=== PATIENT | female | born 1940 | race Caucasian/White ===

== ENCOUNTER 2017-03-26 11:44 | Inpatient (IN) | payer MEDICARE, OTHER ==
[~2017-03-26] VITALS: Ht 157.5 cm; Wt 86.4 kg
[2017-03-26] VITALS (12 sets, daily range): BP systolic 154–210; BP diastolic 66–96; PULSE 67–79; RESP 16–20; O2SAT 96–98
--- NOTE | 2017-03-26 12:11 | ED.REPORT ---
HPI-Stroke / CVA Mar 26, 2017 ED Provider: Tai Ta MD Patient is a 76 year old female with a history of diabetes and hypertension who presents to the ED due to left arm weakness for the past three days. Associated symptoms include a slight facial droop according to the patient's . She states that she has had some "weird" vision changes but "nothing major". Patient denies trouble talking, fever, cough, vomiting or diarrhea. The patient reports that she was playing cards three days ago and then she was suddenly unable to hold the cards. Per the patient's , the patient also bent over to pick up attendant some clothes and fell, which he thinks was because of her weakness. Nursing Notes Stated Complaint: STROKE SYMPTOMS Chief Complaint: Stroke Symptoms Nursing Notes Reviewed: Yes Allergies: Coded Allergies: No Known Allergies (Unverified , 03/26/17) Scheduled Amlodipine (Amlodipine) 5 Mg Tablet 5 MG PO DAILY (Reported) Levothyroxine (Levothyroxine) 175 Mcg Tablet 175 MCG PO DAILY (Reported) Losartan/HCTZ 100-25 mg (Hyzaar 100-25 mg) 1 Each Tablet 1 TABLET PO DAILY ( Reported) Metformin (Glucophage) 1,000 Mg Tablet 1,000 MG PO BID (Reported) Scheduled PRN Nitroglycerin SL (Nitrostat) 0.4 Mg Tab.subl 0.4 MG SL Q5MIN PRN PRN For Chest Pain (Reported) General Time Seen by Provider: 12:13 Chief Complaint Weakness Arm left Hx Obtained From: Patient, Spouse Arrived By: Walk-in Time last known well three days ago Sudden in Onset?: Yes Symptom Duration: Since onset Progression Since Onset: Unchanged Location: : Arm Similar Sx Previous: No Risk Factors NIH Stroke Scale Level of Consciousness: Alert and responsive (0) Ask Month & Age: Both questions right (0) Open/Close Eyes/Hand Administrative Services Officer: Performs both tasks (0) Horizontal EO Movements: None (0) Visual Morrison: No visual loss (0) Right Arm Motor Drift (10s): No drift 10 sec (0) Left Arm Motor Drift (10s): Drift, not touch bed (1) Right Leg Motor Drift (5s): No drift 5 sec (0) Left Leg Motor Drift (5s): Drift, not touch bed (1) Limb Ataxia FNF/Heel-Chambers: Ataxia in 2 limbs (2) (left arm, left leg) Sensation (Arms/Legs/Face): No sensory loss (0) Language Aphasia: No aphasia, normal (0) Dysarthria: No dysarthria, normal (0) Extinction/Inattention: No exctinct/inattent (0) NIHSS Score: 4 Time NIHSS Performed: 12:16 Date NIHSS Performed: Mar 26, 2017 )( CVA Risk Stratification Age >60 Diabetes mellitus HypertensionNo Prior CVA/TIA, No Smoking Risk factors reviewed Past Medical History Past Medical History hypothyroidism Reports: Diabetes mellitus, Hypertension Past Surgical History Reports: Cholecystectomy Smoking History Never Smoker Social History Other Social History: Good social support, Ambulatory Status Independent Review of Systems Review of Systems Note: +slight facial droop Constitutional: Denies: Chills, Fever Respiratory: Denies: Non-productive cough, Shortness of breath GI: Denies: Diarrhea, Nausea, Vomiting Skin: Denies Itching, Denies Rash Neurologic: Reports: Vision change, Weakness, Denies: Confusion, Problem walking, Slurred speech Complete sys rev & neg: except as marked. Physical Exam Initial Vital Signs Vital Signs (First) Date Time Temp Pulse Resp B/P Pulse Ox O2 Delivery O2 Flow Rate FiO2 03/26/17 11:50 36.4 79 16 209/89 97 Room Air Initial VS: Reviewed General/Constitutional: Awake, Alert Head / Eyes: Atraumatic, Normocephalic, PERRL, EOMI Neck: Atraumatic, Supple, Full range of motion Respiratory / Chest: Atraumatic, Breath sounds NL, Breath sounds = bilat, No respiratory distress Cardiovascular: Heart rate NL, Regular rhythm, Heart sounds NL Neurologic: Oriented X3, Speech NL Focal Weakness: Positive: Lower extremity L, Upper extremity L Skin: Atraumatic, Color NL, No rash, Warm, Dry Psychiatric: Affect NL, Mood NL Back: Atraumatic, Full range of motion Interpretation & Diagnostics Lab Results Interpretation Result Diagram: 03/26/17 1316 03/26/17 1316 Test 03/26/17 12:00 Urine Color Straw (YELLOW) Urine Appearance Clear (CLEAR,HAZY) Urine pH 7.0 (5.0-8.0) Urine Specific Irma 1.010 (1.003-1.035) Urine Protein Negativemg/dL (NEG,TRACE) Urine Glucose (UA) 100mg/dL (NEGATIVE) Urine Ketones Negativemg/dL (NEGATIVE) Urine Occult Blood Negative (NEGATIVE) Urine Nitrite Negative (NEGATIVE) Urine Bilirubin Negative (NEGATIVE) Urine Urobilinogen Normalmg/dL (NORMAL) Urine Leukocyte Esterase Negative (NEGATIVE) Urine RBC 0-2/hpf (0-2) Urine WBC 0-5/hpf (0-5) Urine Epithelial Cells Few/hpf (NONE-MOD) Urine Crystals None seen (NONE SEEN) Urine Bacteria None/hpf (NONE-FEW) Urine Hyaline Casts None/lpf (NONE) Urine Granular Casts None seen (NONE SEEN) Urine Waxy Casts None seen (NONE SEEN) Urine Red Blood Cell Casts None seen (NONE SEEN) Urine White Blood Cell Casts None seen (NONE SEEN) Urine Mucus None seen (None Seen) Urine Trichomonas None seen (NONE SEEN) Urine Yeast None (NONE SEEN) Urinalysis Comment None Urine Culture Reflexed Not indicated CT Head Interpretation IMPRESSION: 1. No acute intracranial hemorrhage. 2. Moderate chronic small vessel ischemic changes. The need for better characterization utilizing MRI may be determined clinically. 3. Mild parenchymal volume loss. Dictated by: Bryan Sena M.D. on 03/26/2017 at 11:54 Approved by: Bryan Sena M.D. on 03/26/2017 at 11:56 Interpretation / Wet Read by: Interpret - Radiologist Re-Eval/Medical Decision Re-Evaluation/Progress : Time of Eval: 12:29 Re-Evaluation/Progress Note: Discussed plan for admit and CT. Patient understands and agrees to plan. All questions were addressed. Consultation : Referral / Consult Name: Patricia Retana DO Consulted With: Hospitalist Call Returned at: 13:03 Wheel Blocker: Agrees with eval, Agrees with plan, Accepts admit Counseled Regarding: Diagnosis, Lab results, Need for admission Patient Discharge & Departure Impression: Primary Impression: Cerebrovascular accident CVA mechanism: unspecified Qualified Code: I63.9 - Cerebral infarction, unspecified Disposition: ADMITTED TO HOSPITAL Discharge Condition All VS Reviewed: Yes Condition: Stable Referrals: Gerhard Marlow DO (PCP) Scribe Attestation Portions of this note were transcribed by Vicki Reyes. I, Dr. Ta personally performed the history, physical exam and medical decision-making; I reviewed and confirmed the accuracy of the information in the transcribed note. Signed by: Wayne Euceda, 03/26/17 copies to: Gerhard Marlow Kirk H MD Mar 26, 2017 12:11 Maru Reyes Mar 26, 2017 12:19
--- NOTE | 2017-03-26 12:58 | DRSVH ---
PROCEDURE: CT BRAIN WITHOUT CONTRAST ([id number]) INDICATIONS: left arm/leg weakness TECHNIQUE: Noncontrast 4.5 mm thick angled axial sections acquired from the foramen magnum to the vertex, with c oronal reformats. COMPARISON: None. FINDINGS: Image quality: Diagnostic. Brain: There is no acute intra-axial or extra-axial hemorrhage. No extra-axial fluid collection is i dentified. There is no midline shift or mass effect. The orbits are grossly unremarkable. No large areas of diffusely decreased attenuation are evident within the brain to suggest diffuse cer ebral edema. However, there are confluent areas of low-attenuation within the periventricular and de ep white matter of the supratentorial brain (right greater than left). The ventricles and cortical sulci are prescribed slightly prominent. Vascular calcifications involvi ng the intracranial portions of the carotid arteries and the vertebral arteries are noted. Bones: Calvarium and visualized facial bones are grossly intact. The imaged paranasal sinuses and m astoid air cells are clear. IMPRESSION: 1. No acute intracranial hemorrhage. 2. Moderate chronic small vessel ischemic changes. The need for better characterization utilizing M RI may be determined clinically. 3. Mild parenchymal volume loss. Dictated by: Bryan Sena M.D. on 03/26/2017 at 11:54 Approved by: Bryan Sena M.D. on 03/26/2017 at 11:56
[2017-03-26] MEDS ORDERED: Alum-Mag Hydrox-Simeth 30 mL Suspension PO PRN (13:15)
[2017-03-26] MEDS ORDERED: Polyethylene Glycol (PEG) 17 Gm Powder PO PRN (13:15)
[2017-03-26] MEDS ORDERED: Ondansetron 2 mg/mL 2 mL Inj IVPUSH PRN (13:15)
[2017-03-26 13:30] LABS: APPEARANCE,URINE CLEAR (CLEAR,HAZY); COLOR,URINE STRAW (YELLOW); OCCULT BLOOD,URINE NEGATIVE (NEGATIVE); UROBILINOGEN,URINE NORMAL (NORMAL)
[2017-03-26 13:48] LABS: BASOPHILS % (AUTO) 0.7 % (0-3); EOSINOPHILS % (AUTO) 1.4 % (0-5); MONOCYTES % (AUTO) 7.1 % (4-12); Mean Corpuscular Hemoglobin 26.7 pg (27.0-35.0); Mean Corpuscular Volume 82.3 fL (81-100); NEUTROPHILS % (AUTO) 72.9 % (40-74); Platelet Count 309 bil/L (150-400)
[2017-03-26] MEDS ORDERED: METF1000 PO (13:51)
[2017-03-26] MEDS ORDERED: LEVO175T5 PO (13:51)
[2017-03-26] MEDS ORDERED: AMLO5TAB2 PO (13:51)
[2017-03-26] MEDS ORDERED: LOSA1TAB15 PO (13:51)
[2017-03-26] MEDS ORDERED: NITR0.4T SL (13:51)
--- NOTE | 2017-03-26 14:04 | NUR ---
Evaluation completed. Please go to "Notes" then click on "Assessments and Notes" (bottom left corner of screen). Then select appropriate discipline tab on top of screen.
--- NOTE | 2017-03-26 14:15 | NUR ---
Admit to [facility] Report received from Gabbie Rosales RN in ED. Pt brought up to floor via gurney. Pt able to stand for weight, a little off balance/weak. Pt oriented to unit, room and call light. Admissions completed by self and admit nurse. Pt may not fully disclose history but family in room help clarify. Pt denies pain and SOB. Neuro checks show L sided weakness with some mild fascial droop and obvious L arm/hand weakness. Pt leg also weak, can be unsteady when up. All activities at 1P assist. Pt can be impulsive, bed alarm on. Board updated, instructed to use call light for all needs. Stroke teaching complete with booklet in hand. Tele placed - SR 73. Continuing with care.
[2017-03-26] MEDS: Labetalol 5 mg/mL 20 mL Inj IVPUSH PRN (15:51)
--- NOTE | 2017-03-26 18:04 | DRSVH ---
PROCEDURE: US BILATERAL DUPLEX DOPPLER IMAGING OF THE CAROTIDS ([id number]) INDICATIONS: CVA TECHNIQUE: Color and pulse Doppler interrogation was performed of both carotid systems, with image documentation and velocity measurements. COMPARISON: None. FINDINGS: Stenosis calculations are based on SRU (Society of Radiologists in Ultrasound) criteria. Right side: Brachial blood pressure: 163/69 mm Hg. Common carotid artery peak systolic velocity: 97 cm/sec. Internal carotid artery peak systolic velocity: 189 cm/sec. Internal carotid artery end diastolic velocity: 42 cm/sec. External carotid artery peak systolic velocity: 309 cm/sec. ICA/CCA peak systolic ratio: 1.94. Hathaway scale imaging description: Calcified plaque in the origin of the right internal carotid artery Percent internal carotid artery stenosis: 50-69%. Vertebral artery: Flow direction is antegrade. Left side: Brachial blood pressure: Not measured due to presence of a IV access Common carotid artery peak systolic velocity: 77 cm/sec. Internal carotid artery peak systolic velocity: 97 cm/sec. Internal carotid artery end diastolic velocity: 19 cm/sec. External carotid artery peak systolic velocity: 319 cm/sec. ICA/CCA peak systolic ratio: 1.26. Hathaway scale imaging description: Calcified plaque in the origin of the left internal carotid artery. Percent internal carotid artery stenosis: Less than 50%. Vertebral artery: Flow direction is antegrade. IMPRESSION: 1. 50-69% stenosis of the right internal carotid artery. 2. Less than 50% stenosis of the left internal carotid artery. Dictated by: Stephany Martinez MD, PhD on 03/26/2017 at 18:01 Approved by: Stephany Martinez MD, PhD on 03/26/2017 at 18:03
[2017-03-26] MEDS ORDERED: Non-Formulary Medication (Levothyroxine 175 MCG) PO SCH (18:35)
[2017-03-26] MEDS: Heparin 5,000 Unit/mL Inj SUBQ SCH (18:43)
--- NOTE | 2017-03-26 19:53 | PCM.HPMED ---
Subjective Date of Service Mar 26, 2017 Primary Provider: Admitting Physician: Patricia Retana DO Primary Care Physician: Gerhard Marlow DO Attending Physician: Patricia Retana DO Chief Complaint: Left upper extremity weakness History of Present Illness: Ms. Viri Fajardo is a pleasant 76 year old lady with a past medical history of non-insulin using diabetes, hypertension, and hypothyroidism, who presents to the [facility] Emergency Department after left upper extremity weakness that started 3 days ago on Sunday night , 03/23/17t the request of family members. 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 Per the patient's , the patient also bent over to pickle solution maker some clothes and fell, which he thinks was because of her weakness. She reports stopping her home medications and trying for a "natural approach to medications. " Patients family reports a slight facial droop and some "weird" vision changes but "nothing major". Patient denies trouble talking or swallowing, headache, dizziness, fever, chills, diaphoresis, syncope, chest pain, shortness of breath, cough, nausea, vomiting, dysuria, diarrhea. Social: Good social support. Lives in a house with on [place]. No special ambulatory needs. Wishes to go home as soon as possible. Full code. NIH - 1 In the ED patients vitals: T-36.4, HR-79, RR-16, BP-209/89, 97% RA. CT Brain - 1. No acute intracranial hemorrhage. 2. Moderate chronic small vessel ischemic changes. The need for better characterization utilizing MRI may be determined clinically. 3. Mild parenchymal volume loss. Patient refused MRI scan due to extreme anxiety. In the ED patient received - Aspirin. Review of Systems: A comprehensive review of systems was conducted with the patient and found to be negative except as above in the History of Present Illness. Allergies Uncoded Allergies: artificial sweeteners (Allergy, Mild, Hives, 03/26/17) Home Medications PMH Hypothyroidism Diabetes mellitus Hypertension Surgical History Cholecystectomy Family History Mother - CVA Father - Healthy Social History Hx Alcohol Use: No Hx Substance Use: No Hx Tobacco Use: No Smoking Status: Never Smoker Exam Vital Signs Vital Sign - Last Date Time Temp Pulse Resp B/P Pulse Ox O2 Delivery O2 Flow Rate FiO2 03/26/17 13:57 36.4 72 16 195/67 97 Room Air Exam General: Elderly lady lying in bed in no acute distress, well-developed, well- nourished, appropriately interactive HEENT: Normocephalic, atraumatic. External ears without defect. Pupils equal, round, and reactive to light and accommodation. Anicteric sclerae, moist conjunctivae, and no lid lag. Oropharynx free of erythema and cobble stoning with moist mucosa. Neck: Supple with full range of motion. No jugular venous distension. No bruits. No lymphadenopathy or thyromegaly. Cardiovascular: Regular rate and rhythm with no murmurs, rubs, or gallops appreciated Pulmonary: Clear to auscultation bilaterally with no crackles, wheezes, or rhonchi. Normal respiratory effort with no use of accessory muscles. Abdomen: Bowel tones present. Soft, nontender, nondistended. No hepatosplenomegaly or masses appreciated. Extremities: No clubbing, cyanosis, edema, or lymphadenopathy appreciated. Skin: Normal temperature, turgor, and texture; no rash, ulcers, or subcutaneous nodules appreciated. Neurological: Cranial nerves grossly intact. Normal muscle strength, tone, and bulk with all but the cash van salesperson strength on the left extremity which is decreased to roughly 50% when compared to the right. Reflexes, coordination, and sensory function within normal limits. No known gait impairment. Psychiatric: Normal mood and affect. Alert and oriented to person, place, and time. Lab and Diagnostics Result Diagram: 03/26/17 1316 X-Rays, CTs and MRIs CT BRAIN WITHOUT CONTRAST 1. No acute intracranial hemorrhage. 2. Moderate chronic small vessel ischemic changes. The need for better characterization utilizing MRI may be determined clinically. 3. Mild parenchymal volume loss. Dictated by: Bryan Sena M.D. on 03/26/2017 at 11:54 12-lead ECG NSR, 71 BPM, PAC's, no ST changes. Additional Diagnostics: US BILATERAL DUPLEX DOPPLER IMAGING OF THE CAROTIDS IMPRESSION: 1. 50-69% stenosis of the right internal carotid artery. 2. Less than 50% stenosis of the left internal carotid artery. Approved by: Stephany Martinez MD, PhD on 03/26/2017 at 18:03 Assessment & Plan Ms. Viri Fajardo is a pleasant 76 year old lady with a past medical history of non-insulin using diabetes, hypertension, and hypothyroidism, who presents to the [facility] Emergency Department after left upper extremity weakness that started 3 days ago on Deepak night , 03/23/17. She is admitted under observation status and being treated with appropriate medications for post CVA and hypertension. 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 Active. - CT brain as above. - EKG reviewed - NSR 71 bpm, no ST changes, intermittent PAC's. - MRI was refused by patient. Patient reports MRI possibly tomorrow if she gets Ativan. - ECHO ordered. - Carotid US as above. - Lipid panel / HA1c - ordered. - TPA not indicated, outside timeframe. - Aspirin given, will continue daily 81 mg. - Statin ordered. - PT/OT/Speech ordered. - Standard stroke protocol nursing orders. Hypertensive urgency, present on admission. Active. - IV labetalol 20 mg given PRN. - Restarted home medications. Losartan 100 mg Daily, HCTZ 25 mg Daily, Amlodipine 5 mg daily. Hyperlipidemia - Lipid panel ordered - LDL 156. - Will start high intensity Statin, Atorvastatin 40 mg HS. Non-insulin requiring Diabetes. - Continue home Metformin Hypothyroid - TSH ordered. - Continue home Synthroid. Acetaminophen for mild pain when necessary. Bowel regimen Senna and MiraLAX scheduled and PRN. Zofran when necessary for nausea and vomiting. SubQ heparin for now. SCDs in place. High-risk medications: NONE. Social: Good social support. Lives in a house with on [place]. No special ambulatory needs. Wishes to go home as soon as possible. Full code. ADM: NIH - 1 Patient Status: Patient is admitted under observation status with expected length of stay less than 2 midnights due to severity of presenting symptoms, risk of adverse event, and complexity of treatment plan. Pain Evaluation: Adequate Pain Control VTE Prophylaxis: Sub-Q Heparin (Unfractionated) Resuscitation Status: CPR: Attempt Resuscitation Time spent 45 min Attending Statement The patient was seen and examined together with Dr. Rowland on 03/26/17 and I agree with the history, exam and plan as outlined in the note above. . SHIMA ROWLAND DO Mar 26, 2017 14:04 Patricia Retana DO Mar 26, 2017 20:30
--- NOTE | 2017-03-26 21:44 | NUR ---
Neuro Checks/Weakness From admit to floor pt L sided weakness has increased. Pt was able to lift arm with slight drift/fall, now increased. Pt is able to move with some determination but weakness has increased. L side facial droop also more noticeable during evaluation exercises. Pt unsteadiness has increased. Bed alarm in place, continual instruction to use call light - so far pt is cooperative with direction. paged to update.
[2017-03-27] VITALS (8 sets, daily range): BP systolic 146–190; BP diastolic 72–79; PULSE 65–73; RESP 18–24; O2SAT 95–97
[2017-03-27] MEDS: Heparin 5,000 Unit/mL Inj SUBQ SCH ×3 (00:19→17:48)
[2017-03-27] MEDS: Labetalol 5 mg/mL 20 mL Inj IVPUSH PRN (04:10)
--- NOTE | 2017-03-27 05:34 | NUR ---
NOC Left sided weakness Pt had a left sided weakness of upper and lower extremities. Mild left sided facial droop and subtle slurred speech observed. Denies chest pain, sob, n/v or abd discomfort. BP elevated to 190 SBP, MD notified. 20mg labetalol administered. BP on 142/72. Telemetry monitoring noted SR 62. Continuing to monitor.
--- NOTE | 2017-03-27 09:23 | NUR ---
Stroke Education Pt given Stroke booklet and discussion re: risk factors, s/sx was done with pt. Pt forgetful, will do add'l teaching when arrives.
[2017-03-27] MEDS ORDERED: Glucose 40% Oral Gel 15 Gm Tube PO PRN (09:50)
--- NOTE | 2017-03-27 10:25 | NUR ---
Evaluation completed. Please go to "Notes" then click on "Assessments and Notes" (bottom left corner of screen). Then select appropriate discipline tab on top of screen.
[2017-03-27] MEDS ORDERED: Dextrose 10% 250 ML IV PRN (10:30)
--- NOTE | 2017-03-27 10:51 | NUR ---
Case Management: HUTCHINS and Medicare Part D delivered to pt. and family member at bedside. Signed original placed in chart. Copy left at bedside. Desire Maurer RN
[2017-03-27] MEDS: Insulin LISPRO 300 Unit/3 mL Inj SUBQ SCH ×3 (12:00→22:00)
--- NOTE | 2017-03-27 12:31 | DRSVH ---
[facility] [address] [place] [address] Echocardiogram Report Name: MADHU MACHADO Date: 03/27/2017 Height: 62 in Hospital Exam Location: [facility] Weight: 193 lb Gender: Female BSA: 1.9 m2 : 1940 Age: 76 yrs BP: 146/72 mmHg Reason For Study: CVA Ordering Physician: HOSPITALIST [facility] Performed By: Lorraine Aguirre Referring Physician: [facility] Interpretation Summary 1) Mild concentric left ventricular hypertrophy with normal size, wall motion, and systolic function (EF 60-65%). 2) Normal right ventricular size and function. 3) No significant valvular abnormalities. 4) No prior Echo available for comparison. Procedure: A two-dimensional transthoracic echocardiogram with color flow and Doppler was performed. The study quality was technically adequate. There is no prior echocardiogram noted for this patient. The patient was imaged in the supine position. The patient was in normal sinus rhythm during the exam. The patient had occasional PACs during the exam. Left Ventricle: The left ventricle is normal in size. There is mild concentric left ventricular hypertrophy. The ejection fraction is estimated to be 60-65%. Left ventricular systolic function is normal without focal wall motion abnormalities. Right Ventricle: The right ventricle is normal in size and function. Atria: The left atrium is mildly dilated. Right atrial size is normal. The interatrial septum is intact with no evidence for an atrial septal defect. Mitral Valve: The mitral valve leaflets appear mildly thickened, but open well. There is mild mitral annular calcification. There is mild mitral regurgitation. Aortic Valve: The aortic valve is not well visualized. There is no aortic valve stenosis. No aortic regurgitation is present. Tricuspid Valve: The tricuspid valve is normal in structure and function. There is trace tricuspid regurgitation. The right ventricular systolic pressure is estimated at 25 mmHg assuming a right atrial pressure of 3 mm Hg. Pulmonic Valve: The pulmonic valve is not well seen, but is grossly normal. There is a trace or physiologic amount of pulmonic regurgitation. Great Vessels: The aortic root is normal size. The ascending aorta is normal in size. The IVC is of normal diameter and collapses greater than 50% with a sniff. This suggests a low right atrial pressure of 3 mm Hg. Pericardium/ Pleura There is no pericardial effusion. There is no pleural effusion. MMode/2D Measurements & Calculations LVIDd: 3.7 cm RA long axis LVOT diam LVIDs: 2.7 cm LA A2 area: 22.8 cm FS: 28.8 % LA A4 area: 19.6 cm RA area asc Aorta LA length (vol): 5.5 cm Diam: 3.1 cm LA vol: 69.6 ml : 13.1 cm LA vol index RA vol: 31.1 ml RA : 37.0 ml/m2 : 16.5 mm2 LV yadav. diameter/BSA LV sys. diameter/BSA TAPSE: 2.9 cm (cm/m^2): 2.0 (cm/m^2): 1.4 Doppler Measurements & Calculations Ao V2 max MV E max alejandro MV E/A: 0.81 TR max alejandro : 184.8 cm/sec : 91.2 cm/sec : 236.6 cm/sec Ao max PG MV A max alejandro TR max P.4 mmHg : 13.7 mmHg : 113.2 cm/sec Ao mean PG LVOT Max Alejandro : 122.0 cm/sec JEFFERY(I,D): 2.7 cm sev ratio: 0.70 MV dec time Ao V2 mean LV V1 max PG JEFFERY indexed to BSA : 0.30 sec : 133.2 cm/sec (cm^2/m^2): 1.4 Ao V2 VTI: 41.5 cm LV V1 VTI : 28.9 cm JEFFERY(V,D): 2.5 cm2 Reading Physician:12:30 PM
[2017-03-27] MEDS ORDERED: LORazepam 0.5 mg Tablet PO ONE ×2 (14:00→14:15)
--- NOTE | 2017-03-27 14:51 | PCM.PNMED ---
Subjective Date of Service Mar 27, 2017 Subjective Patient symptoms are worsened bit since yesterday. says she did not want to come to ED on Sun. PT/OT also notes worsened sxs, physical therapy recommended inpatient rehabilitation. Patient keeps saying I will become stronger again. She agreed to get an MRI today after her son discussed it with her. Her 's tells me that he did discuss taking a herbal medication with his . Exam Vital Signs Vital Sign - Last Date Time Temp Pulse Resp B/P Pulse Ox O2 Delivery O2 Flow Rate FiO2 03/27/17 04:47 146/72 03/27/17 03:56 36.9 69 18 97 Room Air Intake and Output 03/26/17 03/26/17 03/27/17 Cumulative From/Thru 15:00 23:00 07:00 03/26/17 11:50 - 03/27/17 05:30 Intake Total 400 ml 150 ml 550 ml Output Total 400 ml 400 ml Balance 400 ml -250 ml 150 ml Intake Oral 400 ml 150 ml 550 ml Output Urine Total 400 ml 400 ml # Voids 3 3 # Bowel Movements 0 0 0 Exam Gen. Patient is unable to get up today on her own HEENT: Left-sided patient droop is still present Heart: Regular rate and rhythm no S3-S4 murmurs Lungs: Clear to auscultation no crackles or wheezes Abdomen soft, nontender Neuro exam: Patient was unable to stand steady of the posterior yesterday than she was able to stand up but had an arm drift and Romberg's. Left-sided Facial droop is still present MSK Reduced musculoskeletal strength in the lower extremity is also noted She is unable to do any alternating hands because her left wrist and hand are not moving. She is able to abduction and adduction and flex the elbow. Was able to perform [id number] with her right hand. Psych: Appears to be quite stressed about her current predicament IVs and Medications IV Fluids None Medications Reviewed: Medications were reviewed in detail Lab and Diagnostics Result Diagram: 03/26/17 1316 03/26/17 1316 X-Rays, CTs and MRIs CT BRAIN WITHOUT CONTRAST 1. No acute intracranial hemorrhage. 2. Moderate chronic small vessel ischemic changes. The need for better characterization utilizing MRI may be determined clinically. 3. Mild parenchymal volume loss. Dictated by: Bryan Sena M.D. on 03/26/2017 at 11:54 12-lead ECG NSR, 71 BPM, PAC's, no ST changes. Additional Diagnostics US BILATERAL DUPLEX DOPPLER IMAGING OF THE CAROTIDS IMPRESSION: 1. 50-69% stenosis of the right internal carotid artery. 2. Less than 50% stenosis of the left internal carotid artery. Approved by: Stephany Martinez MD, PhD on 03/26/2017 at 18:03 Assessment & Plan Ms. Viri Fajardo is a pleasant 76 year old lady with a past medical history of non-insulin using diabetes, hypertension, and hypothyroidism, who presents to the [facility] Emergency Department after left upper extremity weakness that started 3 days ago on Sunday night , 03/23/17. She is admitted under observation status and being treated with appropriate medications for post CVA and hypertension. 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 Active. - CT brain as above. - EKG reviewed - NSR 71 bpm, no ST changes, intermittent PAC's. -- No overnight telemetry monitoring events -Patient agreed to get an MRI done with Ativan. Acute ischemia in the right parietal lobe. However she was unable to complete to all phases of MR stroke protocol. - ECHO ordered and showed no concern for left atrial dilation, showed Mild concentric left ventricular hypertrophy with normal size, wall motion, and systolic function (EF 60-65%). - Carotid US : 50-69% stenosis of the right internal carotid artery. Less than 50% stenosis of the left internal carotid artery. - Lipid panel / HA1c - A1c is 8.0, showing poor control. Based on her lipid panel, and discussed factors she should be on a statin and this is discussed with patient - Atorvastatin 40 daily mg is ordered. - TPA not indicated, outside timeframe. - Aspirin given, will continue daily 81 mg. - PT/OT/Speech ordered. PT OT recommends inpatient rehabilitation - Standard stroke protocol nursing orders. - Dr. villanueva from neurology is consulted, he visited the patient. We appreciate his recommendations. He states that MRA will show, subacute and acute infarcts. He recommends MRA. Follow up with him in the morning. -- Consider sedation for any future scans Hypertensive urgency, present on admission. Active. - IV labetalol 20 mg given PRN. - Restarted home medications. Losartan 100 mg Daily, HCTZ 25 mg Daily, Amlodipine 5 mg daily. Hyperlipidemia - Lipid panel ordered - LDL 156. - Will start high intensity Statin, Atorvastatin 40 mg HS. Non-insulin requiring Diabetes. - Initially we Continued home Metformin as she refused MRI and any other imaging -- After worsening and patient's neurological exam, we held metformin with anticipation of more scanning taking place -- Consider long-acting Lantus based on her sliding scale coverage -- Low sliding scale is ordered Hypothyroid - TSH ordered. - Continue home Synthroid. Acetaminophen for mild pain when necessary. Bowel regimen Senna and MiraLAX scheduled and PRN. Zofran when necessary for nausea and vomiting. SubQ heparin for now. SCDs in place. High-risk medications: NONE. Social: Good social support. Lives in a house with on [address]. No special ambulatory needs. Wishes to go home as soon as possible. Full code. ADM: [facility] - 1 Patient Status: Patient is admitted under observation status with expected length of stay less than 2 midnights due to severity of presenting symptoms, risk of adverse event, and complexity of treatment plan. VTE Prophylaxis: Sub-Q Heparin (Unfractionated) VTE Mechanical Devices: Intermittant Pneumatic CD Resuscitation Status: CPR: Attempt Resuscitation Time spent 35 minutes Patricia Retana DO Mar 27, 2017 08:58
--- NOTE | 2017-03-27 14:58 | NUR ---
Evaluation completed. Please go to "Notes" then click on "Assessments and Notes" (bottom left corner of screen). Then select appropriate discipline tab on top of screen.
--- NOTE | 2017-03-27 17:00 | NUR ---
Social Work-initial assessment: Data:See initial assessment. Pt is a 76 y/o female who was admitted on 03/26/17 for CVA per H&P. Pt's insurance is [employer] and [employer] and PCP is Gerhard Marlow DO. EMR reviewed. JOBY met with pt and Al [phone] or [phone] at bedside, SW role explained. Pt and live in home where pt remains independent with ADLs. Pt normally drives and does not use any DME. Pt has no HH or SNF history. Pt has no terminal computer operator care insurance or VA benefits. SW discussed DPOA/ advanced directive, this has been completed, SW encouraged a copy to be brought in. SW provided pt and family with discharge planning checklist and encouraged them to call with any questions, phone number provided. PT/OT both saw pt and they are recommending Inpt rehab. MD order received. JOBY discussed with pt and . and pt would like a referral to [facility] due to being closer to their home. SW discussed discharge plan post rehab. confirms he is able to provide 24/7 custodial if needed. SW faxed referral to [facility] in rehab [phone]. SW received a call from Heavenly at [facility] [phone] who states that she is going to provide this to her medical scheduler for review. JOBY also discussed transportation with family. JOBY explained that depending on recommendation, pt may either need to go cabulance or private car. SW explained if pt went cabulance that this would be a private cost, family agreeable. JOBY will continue to follow. Assessment:Pt who would benefit from inpt rehab. Plan:Referral sent to [facility]. SW will continue to follow. KATJA Dangelo Addendum: 03/27/17 at 1725 by GUILLERMO WADE Amended: Links added.
--- NOTE | 2017-03-27 17:19 | NUR ---
Off unit Pt off unit at 1705 to MRI, glass installer technician aware. Addendum: 03/27/17 at 1736 by NHAN CONTRERAS RN Pt back on unit, only able to complete a portion of MRI per techElmira jurado.
--- NOTE | 2017-03-27 18:21 | NUR ---
Neuros/activity Pt with LUE/LLE weakness. Pt repeatedly pulling/holding L hand with R hand and saying, "Why is this not moving? What's wrong with it?" Pt impulsive, attempting to amb ind and stating, "I know I can walk, just let me." Pt requiring 2 person assist with all transfers due to impulsiveness and leaning to the left. Bed alarm on at all times and pt is not left on BSC alone. Family/friends at bedside. Pt denies any pain/discomfort. Bed in lowest, locked position and call light in reach.
--- NOTE | 2017-03-27 18:25 | DRSVH ---
PROCEDURE: MRI BRAIN WITHOUT CONTRAST ([id number]) INDICATIONS: cva TECHNIQUE: Non-contrast axial T1 spin echo, axial T2 fast spin echo, sagittal and axial FLAIR, coronal T2 fast s pin echo, axial gradient echo, axial diffusion and ADC through the brain. COMPARISON: [facility], CT, CT BRAIN WO CON, 03/26/2017, 12:43. FINDINGS: Image quality: Excellent. CSF spaces: Ventricles appear symmetric in size and shape. Basal cisterns are patent. No extra-axi al fluid collections. Brain: There are multiple foci of restricted diffusion in the right parietal lobe consistent with ac mary's igloo ischemic insults. No intracranial bleeds or mass effects. There is mild cerebral volume loss for age. There are moderate periventricular and deep white matter chronic small vessel ischemic changes . Brainstem appears normal. Normal intravascular flow voids are present. Skull and face: Calvarial bone marrow is normal in signal. Orbits are normal. Sinuses: Sinuses and mastoids are clear. IMPRESSION: 1. Acute ischemia in the right parietal lobe. 2. Cerebral volume loss and chronic microvascular ischemic changes. Dictated by: Elizabeth Carty M.D. on 03/27/2017 at 18:18 Approved by: Elizabeth Carty M.D. on 03/27/2017 at 18:24
[2017-03-28 00:37] VITALS: BP 131/71; PULSE 67; RESP 20; O2SAT 92
[2017-03-28] MEDS: Heparin 5,000 Unit/mL Inj SUBQ SCH ×3 (01:24→16:26)
[2017-03-28 04:49] VITALS: BP 152/78; PULSE 64; RESP 18; O2SAT 95
--- NOTE | 2017-03-28 05:34 | NUR ---
Shift note No notable neuro changes through night ,woke up confused where she was once, otherwise used call light did struggle getting sleep d/t back pain ,wanting to get in chair,eventually was able to get comfortable w/ice pack and position changes
[2017-03-28] MEDS ORDERED: Potassium Chloride 20 mEq SR Tablet PO ONE (07:35)
[2017-03-28 09:06] VITALS: BP 155/73; PULSE 73; RESP 20; O2SAT 96
[2017-03-28] MEDS: Insulin LISPRO 300 Unit/3 mL Inj SUBQ SCH ×2 (09:51→12:00)
--- NOTE | 2017-03-28 10:30 | NUR ---
Social Work-continued d/c planning: Data:EMR reviewed. Pt is on day 2 of hospitalization for CVA per H&P. Pt is not medically stable anticipate 1-2 more days. PT/OT have seen pt and recommended Inpt rehab. Referral made to [facility] yesterday. JOBY followed up with Aurea in admissions at [facility] and left message to discuss pt, awaiting a return call. SW will continue to follow. Assessment:Pt who would benefit from inpt rehab. Plan:Referral made to [facility] inpt rehab. SW has left message with [facility] to discuss pt today. SW will continue to follow. KATJA Dangelo
[2017-03-28 10:48] VITALS: PULSE 65
--- NOTE | 2017-03-28 10:57 | NUR ---
Case Management: [facility] delivered and charted. Signed original placed in chart. Copy left at bedside. Desire Maurer RN
[2017-03-28] MEDS ORDERED: LORazepam 0.5 mg Tablet PO PRN (12:20)
--- NOTE | 2017-03-28 12:22 | PCM.PNMED ---
Subjective Date of Service Mar 28, 2017 Exam Vital Signs Vital Sign - Last Date Time Temp Pulse Resp B/P Pulse Ox O2 Delivery O2 Flow Rate FiO2 03/28/17 10:48 65 03/28/17 09:06 35.9 20 155/73 96 Room Air Intake and Output 03/27/17 03/27/17 03/28/17 Cumulative From/Thru 15:00 23:00 07:00 03/26/17 11:50 - 03/28/17 06:02 Intake Total 470 ml 200 ml 1220 ml Output Total 690 ml 750 ml 1840 ml Balance -220 ml -550 ml -620 ml Intake Oral 470 ml 200 ml 1220 ml Output Urine Total 690 ml 750 ml 1840 ml # Voids 3 # Bowel Movements 1 1 Exam Gen: Lying in bed on left side. NAD, AOx4, HEENT: NCAT, PERRLA, EOMI, MMM, sclera anicteric. +Left-sided facial droop Neck: Soft, supple, no thyromegaly/JVD/LAD. Resp: CTAB, no R/R/W. CV: S1 S2, RRR, No M/R/G Abd: Soft, (+) BS, NT/ND, no guarding/rebound/organomegaly. Ext: +PP, No edema. Skin: warm/dry/intact Neuro/Psych: Cranial nerves grossly intact +Slurred speech, +Left-sided facial droop, LUE 3/5- She is able to abduction and adduction and flex the elbow. LLE- 5/5. Could not assess gait due to weakness. No sensory deficits appreciated. Could not assess DDK. Finger to Nose w/ Right hand only. IVs and Medications Medications Reviewed: Medications were reviewed in detail Lab and Diagnostics Result Diagram: 03/26/17 1316 03/27/17 2318 X-Rays, CTs and MRIs CT BRAIN WITHOUT CONTRAST 1. No acute intracranial hemorrhage. 2. Moderate chronic small vessel ischemic changes. The need for better characterization utilizing MRI may be determined clinically. 3. Mild parenchymal volume loss. Dictated by: Bryan Sena M.D. on 03/26/2017 at 11:54 12-lead ECG NSR, 71 BPM, PAC's, no ST changes. Additional Diagnostics US BILATERAL DUPLEX DOPPLER IMAGING OF THE CAROTIDS IMPRESSION: 1. 50-69% stenosis of the right internal carotid artery. 2. Less than 50% stenosis of the left internal carotid artery. Approved by: Stephany Martinez MD, PhD on 03/26/2017 at 18:03 Assessment & Plan Ms. Viri Fajardo is a pleasant 76 year old lady with a past medical history of non-insulin using diabetes, hypertension, and hypothyroidism, who presents to the [facility] Emergency Department after left upper extremity weakness that started 3 days ago on Deepak night , 03/23/17. She is admitted under observation status and being treated with appropriate medications for post CVA and hypertension. 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 Patient agreed to get an MRI done with Ativan. Acute ischemia in the right parietal lobe. However she was unable to complete to all phases of MR stroke protocol. - ECHO ordered and showed no concern for left atrial dilation, showed Mild concentric left ventricular hypertrophy with normal size, wall motion, and systolic function (EF 60-65%). - Carotid US : 50-69% stenosis of the right internal carotid artery. Less than 50% stenosis of the left internal carotid artery. - Lipid panel / HA1c - A1c is 8.0, showing poor control. Based on her lipid panel, and discussed factors she should be on a statin and this is discussed with patient - Atorvastatin 40 daily mg is ordered. - Aspirin given, will continue daily 81 mg. - PT/OT/Speech ordered. PT OT recommends inpatient rehabilitation - Dr. villanueva from neurology is consulted, he visited the patient. We appreciate his recommendations. He states that MRA will show, subacute and acute infarcts. - Rec CTA Head and Neck ordered 03/28. - Consider sedation for any future scans Hypertensive urgency, present on admission. Active. - IV labetalol 20 mg PRN. - Restarted home medications. Losartan 100 mg Daily, HCTZ 25 mg Daily, Amlodipine 5 mg daily. Hyperlipidemia - Lipid panel ordered - LDL 156. - Will start high intensity Statin, Atorvastatin 40 mg HS. Non-insulin requiring Diabetes. - A1c is 8.0, showing poor control - Initially we Continued home Metformin as she refused MRI and any other imaging -- After worsening and patient's neurological exam, we held metformin with anticipation of more scanning taking place -- Consider long-acting Lantus based on her sliding scale coverage -- Low sliding scale is ordered, FS 159 x2 on 03/28. - Follow up with PCP upon discharge. Hypothyroid - TSH- 0.475 - Continue home Synthroid. Acetaminophen for mild pain when necessary. Bowel regimen Senna and MiraLAX scheduled and PRN. Zofran when necessary for nausea and vomiting. SubQ heparin for now. SCDs in place. High-risk medications: NONE. Social: Good social support. Lives in a house with on [address]. No special ambulatory needs. Full code. ADM: [facility] - 1 Dispo: PT OT recommends inpatient rehabilitation. VTE Prophylaxis: Sub-Q Heparin (Unfractionated) VTE Mechanical Devices: Intermittant Pneumatic CD Resuscitation Status: CPR: Attempt Resuscitation Jose Melendez MD Mar 28, 2017 12:22
--- NOTE | 2017-03-28 13:49 | NUR ---
Social Work-readiness for discharge: Data:EMR reviewed. P tis on day 2 of hospitalization for CVA per H&P. Pt is not medically stable anticipate tomorrow. PT and OT are recommending inpt rehab. SW spoke with Aurea at [facility] who confirms they are able to accept pt when medically stable. [facility] rep Tammie to come and speak with the family today. Family updated. SW will continue to follow. Assessment:pt who would benefit from inpt rehab. Plan:Pt has been accepted at [facility] when medically stable. SW will continue to follow. KATJA Dangelo
--- NOTE | 2017-03-28 14:19 | DRSVH ---
PROCEDURE: CT ANGIO HEAD AND NECK (P) INDICATIONS: right parietal lobe infarcts. TECHNIQUE: Pre-contrast 4.5 mm thick sections acquired from the foramen magnum to the vertex. After the adminis tration of intravenous contrast, 1 mm thick sections acquired from the aortic arch through the [place] of [place]. Post-contrast 4.5 mm thick sections then re-acquired from the foramen magnum to the vert ex. 3-dimensional pndobwf-uqcbzpgxt-orbquvhcih (MIP) and/or volume rendering reformats were acquired of the central intracranial vasculature and neck separately. For radiation dose reduction, the foll owing was used: automated exposure control, adjustment of mA and/or kV according to patient size. COMPARISON: [facility], MR, MR BRAIN WO CON, 03/27/2017, 17:10. FINDINGS: Image quality: Excellent. BRAIN: CSF spaces: Ventricles are normal in size and shape. Basal cisterns are patent. No extra-axial flu id collections. Brain: No midline shift. No intracranial bleeds or masses. Small hypodensities noted in the posteri or right frontal and right parietal lobe which correspond to areas of infarction identified on prior MRI. Skull and face: Calvarium and facial bones appear intact, without suspicious lesions. Orbits appear normal. Sinuses: Sinuses and mastoids are clear. HEAD CT ANGIOGRAPHY: Anterior circulation: Dense atherosclerotic calcifications noted in the cavernous and supraclinoid se gments of the internal carotid arteries bilaterally which causes multifocal high-grade stenoses. The flow within the paired anterior cerebral arteries is normal and symmetric. The flow within the middl e cerebral arteries is normal and symmetric. The anterior communicating artery is seen. No aneurysm s are seen. Posterior circulation: Dense atherosclerotic calcifications are noted in the V4 segment of the left v ertebral artery which causes multifocal high-grade stenoses. Atherosclerotic calcifications noted in the proximal V4 segment of the right vertebral artery which cause short segment moderate stenosis. No rmal contrast opacification of the basilar artery is noted. Basilar artery are fully patent. Flow wit hin the posterior cerebral arteries is normal and symmetric. No aneurysms are seen. NECK CT ANGIOGRAPHY: Carotid system: The great vessels demonstrate a conventional anatomy as they arise from the aortic a rch. The origins of the common carotid arteries appear patent. Atherosclerotic calcifications noted in the origin of the left subclavian artery which is not causing measurable stenosis. The common car otid arteries demonstrate normal caliber and courses. Dense atherosclerotic ossification is noted in the origins of the internal carotid arteries bilaterally which cause high-grade, greater than 90% drew nosis of the vessels. There is contrast opacification distal to the high-grade stenoses involving the origins of the internal carotid arteries. Posterior circulation: The patient is left vertebral artery dominant. The origins of the vertebral a rteries both appear widely patent. The more superior extracranial portions of both vertebral arterie s also demonstrate normal courses. Scattered atherosclerotic calcifications noted in the ATN the 3 se gments of the left vertebral artery which is not causing measurable stenosis. They join to form a nor mal appearing basilar artery. Soft tissues: Visualized neck soft tissues demonstrate no suspicious abnormalities. Bones: No suspicious bony lesions. Visualized cervical spine appears normally aligned. IMPRESSION: 1. A few, small, hypodensities in the posterior right frontal and right parietal lobes which correspo nd to infarcts identified by prior MRI. 2. Multifocal, high-grade stenoses involving the cavernous and supraclinoid segments of the intracran ial internal carotid arteries bilaterally. 3. Multifocal, high-grade stenoses involving the V4 segment of the left vertebral artery. 4. High-grade, greater than 90% atherosclerotic stenosis of the origins of the internal carotid arter ies bilaterally. Dictated by: Stephany Martinez MD, PhD on 03/28/2017 at 13:57 Approved by: Stephany Martinez MD, PhD on 03/28/2017 at 14:07
[2017-03-28 15:31] VITALS: BP 150/79; PULSE 71; RESP 18; O2SAT 95
--- NOTE | 2017-03-28 16:20 | PCM.DC.MED ---
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 Active. Hyperlipidemia Non-insulin requiring Diabetes. Hypothyroid Consultations Neurology- Dr. Magaña Procedures XRay, CTs & MRIs 03/28/17 -CT ANGIO HEAD AND NECK 1. A few, small, hypodensities in the posterior right frontal and right parietal lobes which correspond to infarcts identified by prior MRI. 2. Multifocal, high-grade stenoses involving the cavernous and supraclinoid segments of the intracranial internal carotid arteries bilaterally. 3. Multifocal, high-grade stenoses involving the V4 segment of the left vertebral artery. 4. High-grade, greater than 90% atherosclerotic stenosis of the origins of the internal carotid arteries bilaterally. CT BRAIN WITHOUT CONTRAST 1. No acute intracranial hemorrhage. 2. Moderate chronic small vessel ischemic changes. The need for better characterization utilizing MRI may be determined clinically. 3. Mild parenchymal volume loss. Dictated by: Bryan Sena M.D. on 03/26/2017 at 11:54 ECG 12 Lead NSR, 71 BPM, PAC's, no ST changes. Other Diagnostics US BILATERAL DUPLEX DOPPLER IMAGING OF THE CAROTIDS IMPRESSION: 1. 50-69% stenosis of the right internal carotid artery. 2. Less than 50% stenosis of the left internal carotid artery. Approved by: Stephany Martinez MD, PhD on 03/26/2017 at 18:03 Brief History Ms. Viri Fajardo is a pleasant 76 year old lady with a past medical history of non-insulin using diabetes, hypertension, and hypothyroidism, who presents to the [facility] Emergency Department after left upper extremity weakness that started 3 days ago on Deepak night , 03/23/17t the request of family members. 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 Per the patient's , the patient also bent over to flower picker some clothes and fell, which he thinks was because of her weakness. She reports stopping her home medications and trying for a "natural approach to medications. " Patients family reports a slight facial droop and some "weird" vision changes but "nothing major". Patient denies trouble talking or swallowing, headache, dizziness, fever, chills, diaphoresis, syncope, chest pain, shortness of breath, cough, nausea, vomiting, dysuria, diarrhea. Social: Good social support. Lives in a house with on [place]. No special ambulatory needs. Wishes to go home as soon as possible. Full code. [facility] - 1 In the ED patients vitals: T-36.4, HR-79, RR-16, BP-209/89, 97% RA. CT Brain - 1. No acute intracranial hemorrhage. 2. Moderate chronic small vessel ischemic changes. The need for better characterization utilizing MRI may be determined clinically. 3. Mild parenchymal volume loss. Patient refused MRI scan due to extreme anxiety. In the ED patient received - Aspirin. Hospital Course Ms. 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 Patient agreed to get an MRI done with Ativan. Acute ischemia in the right parietal lobe. However she was unable to complete to all phases of MR stroke protocol. - ECHO ordered and showed no concern for left atrial dilation, showed Mild concentric left ventricular hypertrophy with normal size, wall motion, and systolic function (EF 60-65%). - Carotid US : 50-69% stenosis of the right internal carotid artery. Less than 50% stenosis of the left internal carotid artery. - Lipid panel / HA1c - A1c is 8.0, showing poor control. Based on her lipid panel, and discussed factors she should be on a statin and this is discussed with patient - Will start high intensity Statin, Atorvastatin 40 mg HS. - Aspirin given, will continue daily 81 mg. - PT/OT/Speech ordered. PT OT recommends inpatient rehabilitation - Dr. Magaña from neurology consulted- rec CTA head/neck. - CTA Head and Neck ordered 03/28- shows high grade severe bilateral internal carotid artery stenosis. High grade severe bilateral internal carotid artery stenosis- >90%, chronic, poa - Per CTA head/neck. 03/28/17 A few, small, hypodensities in the posterior right frontal and right parietal lobes which correspond to infarcts identified by prior MRI. Multifocal, high-grade stenoses involving the cavernous and supraclinoid segments of the intracranial internal carotid arteries bilaterally. Multifocal, high-grade stenoses involving the V4 segment of the left vertebral artery. High-grade, greater than 90% atherosclerotic stenosis of the origins of the internal carotid arteries bilaterally. - Discussed case w/ Dr. Magaña and he rec calling NSG at [place]. - Given degree of stenosis, will allow for permissive HTN. Held Losartan. Add Plavix to 81mg ASA. - Discussed with Dr. Robert Vera. Will transfer to [facility] for Vascular Surgery consult to determine if intervention indicated. Hypertensive urgency, present on admission. Active. - IV labetalol 20 mg PRN. - Restarted home medications. Losartan 100 mg Daily, HCTZ 25 mg Daily, Amlodipine 5 mg daily. - Allow for permissive HTN. Held Losartan Hyperlipidemia - Lipid panel ordered - LDL 156. - Will start high intensity Statin, Atorvastatin 40 mg HS. Non-insulin requiring Diabetes. - A1c is 8.0, showing poor control - Initially we Continued home Metformin as she refused MRI and any other imaging -- After worsening and patient's neurological exam, we held metformin with anticipation of more scanning taking place -- Consider long-acting Lantus based on her sliding scale coverage -- Low sliding scale is ordered, FS 159 x2 on 03/28. - Follow up with PCP upon discharge. Hypothyroid - TSH- 0.475 - Continue home Synthroid. Acetaminophen for mild pain when necessary. Bowel regimen Senna and MiraLAX scheduled and PRN. Zofran when necessary for nausea and vomiting. SubQ heparin for now. SCDs in place. High-risk medications: NONE. Social: Good social support. Lives in a house with on [place]. No special ambulatory needs. Full code. ADM: [facility] - 1 Dispo: PT OT recommends inpatient rehabilitation. Discussed with Dr. Robetr Vera. Will transfer to [facility] for Vascular Surgery consult to determine if intervention indicated. Exam Vital Signs (Last) Date Time Temp Pulse Resp B/P Pulse Ox O2 Delivery O2 Flow Rate FiO2 03/28/17 15:31 36.9 71 18 150/79 95 Room Air Test 03/26/17 12:00 03/26/17 13:10 03/26/17 13:16 03/27/17 23:18 Urine Color Straw (YELLOW) Urine Appearance Clear (CLEAR,HAZY) Urine pH 7.0 (5.0-8.0) Urine Specific [place] 1.010 (1.003-1.035) Urine Protein Negativemg/dL (NEG,TRACE) Urine Glucose (UA) 100mg/dL (NEGATIVE) Urine Ketones Negativemg/dL (NEGATIVE) Urine Occult Blood Negative (NEGATIVE) Urine Nitrite Negative (NEGATIVE) Urine Bilirubin Negative (NEGATIVE) Urine Urobilinogen Normalmg/dL (NORMAL) Urine Leukocyte Esterase Negative (NEGATIVE) Urine RBC 0-2/hpf (0-2) Urine WBC 0-5/hpf (0-5) Urine Epithelial Cells Few/hpf (NONE-MOD) Urine Crystals None seen (NONE SEEN) Urine Bacteria None/hpf (NONE-FEW) Urine Hyaline Casts None/lpf (NONE) Urine Granular Casts None seen (NONE SEEN) Urine Waxy Casts None seen (NONE SEEN) Urine Red Blood Cell Casts None seen (NONE SEEN) Urine White Blood Cell Casts None seen (NONE SEEN) Urine Mucus None seen (None Seen) Urine Trichomonas None seen (NONE SEEN) Urine Yeast None (NONE SEEN) Urinalysis Comment None Urine Culture Reflexed Not indicated Thyroid Stimulating Hormone (TSH) 0.475uIU/mL (0.450-4.500) White Blood Count 11.5th/mm3 (3.8-10.1) Red Blood Count 5.20mil/mm3 (3.90-5.20) Hemoglobin 13.9g/dL (12.0-15.6) Hematocrit 42.8% (35.0-46.0) Mean Corpuscular Volume 82.3fL (81-100) Mean Corpuscular Hemoglobin 26.7pg (27.0-35.0) Mean Corpuscular Hemoglobin Concent 32.5% (32.0-37.0) Red Cell Distribution Width 14.9% (12.3-15.4) Platelet Count 309bil/L (150-400) Neutrophils (%) (Auto) 72.9% (40-74) Lymphocytes (%) (Auto) 17.7% (14-46) Monocytes (%) (Auto) 7.1% (4-12) Eosinophils (%) (Auto) 1.4% (0-5) Basophils (%) (Auto) 0.7% (0-3) Hemoglobin A1c 8.0% (4.8-5.6) Total Bilirubin 0.4mg/dL (0.0-1.2) Aspartate Amino Transf (AST/SGOT) 10U/L (0-50) Alanine Aminotransferase (ALT/SGPT) 11U/L (0-32) Alkaline Phosphatase 84U/L (25-165) Total Protein 7.8g/dL (6.4-8.4) Albumin 4.2g/dL (3.4-5.0) Triglycerides Level 107mg/dL (0-149) Cholesterol Level 239mg/dL (100-199) LDL Cholesterol, Calculated 156.600mg/dL (0-99) VLDL Cholesterol 21.400mg/dL HDL Cholesterol 61mg/dL (>39) Cholesterol/HDL Ratio 3.92 (0.0-4.4) Sodium Level 138mEq/L (134-144) Potassium Level 3.3mEq/L (3.5-5.2) Chloride Level 96mEq/L (97-108) Carbon Dioxide Level 27mmol/L (18-29) Blood Urea Nitrogen 21mg/dL (8-27) Creatinine 0.57mg/dL (0.57-1.00) Estimat Glomerular Filtration Rate 147mL/min (>59) Glucose Level 137mg/dL (60-99) Calcium Level 9.4mg/dL (8.5-10.1) Discharge Medications Discharge Medications Amlodipine (Amlodipine) 5 Mg Tablet 5 MG PO DAILY (Reported) Aspirin Chew (Aspirin Chew) 81 Mg Chew 81 MG PO DAILY Prescribed by: CHALINO TINAJERO MD Atorvastatin Calcium (Atorvastatin Calcium) 40 Mg Tablet 40 MG PO HS Prescribed by: CHALINO TINAJERO MD Clopidogrel (Clopidogrel) 75 Mg Tablet 75 MG PO DAILY Prescribed by: CHALINO TINAJERO MD Heparin Sodium,Porcine (Heparin Sodium) 5,000 Unit/1 Ml Vial 5,000 UNIT SUBQ Q8 Prescribed by: CHALINO TINAJERO MD Levothyroxine (Levothyroxine) 175 Mcg Tablet 175 MCG PO DAILY (Reported) Followup Plan Disposition: Dispo: PT OT recommends inpatient rehabilitation. Discussed with Dr. Robert Vera. Will transfer to [facility] for Vascular Surgery consult to determine if intervention indicated. Chalino Tinajero MD Mar 28, 2017 16:20
--- NOTE | 2017-03-28 16:29 | PCM.DIMED ---
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 Active. Hyperlipidemia Non-insulin requiring Diabetes. Hypothyroid Medication Instructions Additional med instructions - Aspirin daily 81 mg and Plavix 75 mg daily. - Allow for permissive HTN. Held Losartan. - Will start high intensity Statin, Atorvastatin 40 mg HS. Patient Instructions Patient Instructions Will continue Physical therapy upon discharge from [place]. Jose Melendez MD Mar 28, 2017 16:29
[2017-03-28] MEDS ORDERED: HEPA500017 SUBQ (16:31)
[2017-03-28] MEDS ORDERED: CLOP75TA28 PO (16:31)
[2017-03-28] MEDS ORDERED: ATOR40TA69 PO (16:31)
[2017-03-28] MEDS ORDERED: ASPI81TA3 PO (16:31)
--- NOTE | 2017-03-28 17:16 | NUR ---
Social Work-discharge: Data& assessment: EMR reviewed. Pt is on day 2 of hospitalization for CVA per H&P. SW updated by anesthesia technician that pt is being transferred down to [facility] for higher level of care. Pt's husbands had questions regarding transfer and insurance that SW answered. SW explained that SW couldn't guarantee that insurance would cover transport,etc, agreeable to continue with transfer. SW updated Tammie at [facility] that pt transferring down to [facility]. All updated and agreeable to plan. Plan:Pt to transfer to [facility]. No other SW needs identified. Rowan Mckenzie,KATJA
--- NOTE | 2017-03-28 18:12 | NUR ---
Transfer/Activity Pt. was transferred to [facility] for a higher level of care. Report was given via phone at ~ 1656 with RN from [facility]. Pt. took all her belongings from room [address] and was transported by EMS, Pt. left at ~ 1705. Per report Pt. would be going to room 813 on the [facility] floor at [facility]. Family was aware as they where here all day on day shift. EMS took informational packet to be given at [facility]. Pt. still experiencing left sided weakness on shift with LUE weakness as well as no maxillofacial pathology strength. Left lip droopage noted as well as tongue deviated to the left. LLE weakness as well but Pt. is able to raise her leg up and hold it for a few seconds. Pt. on shift was able to ambulate with a gait belt to the bathroom with 1 person assist.
== END 2017-03-28 17:07 | disposition short-term general hospital (02) | DRG 65 ==
LOC: SED 11:44 → OBSVTOIN 13:13 → MPC 13:13
PROVIDERS: ADMIT Family Medicine; ATTEND Internal Medicine
DX: I63.9 Cerebral infarction, unspecified (principal); G81.94 Hemiplegia, unspecified affecting left nondominant side; I65.23 Occlusion and stenosis of bilateral carotid arteries; I16.0 Hypertensive urgency; R47.81 Slurred speech; R29.810 Facial weakness; E78.5 Hyperlipidemia, unspecified; E11.9 Type 2 diabetes mellitus without complications; I10 Essential (primary) hypertension; E03.9 Hypothyroidism, unspecified; R40.2142 Coma scale, eyes open, spontaneous, at arrival to emergency department; R40.2362 Coma scale, best motor response, obeys commands, at arrival to emergency department; R40.2252 Coma scale, best verbal response, oriented, at arrival to emergency department